=== PATIENT | female | born 1990 | race Caucasian/White ===

== ENCOUNTER 2018-12-21 02:31 | Emergency (ER) | payer MEDICAID ==
[~2018-12-21] VITALS: Ht 154.9 cm; Wt 43.4 kg
[~2018-12-21 02:31] MED LIST: NO HOME MEDS
[2018-12-21 03:00] LABS: URINE HCG NEGATIVE (NEG)
[2018-12-21 03:00] LABS: BASOPHILS % (AUTO) 0.3 % (0-1); EOSINOPHILS # (AUTO) 0.1 X10'3 (0-0.9); EOSINOPHILS % (AUTO) 0.5 % (0-6); HEMATOCRIT 43.7 % (35.0-45.0); HEMOGLOBIN 14.9 g/dl (12.0-16.0); LYMPHOCYTES # (AUTO) 3.6 X10'3 (1.1-4.8); LYMPHOCYTES % (AUTO) 26.7 % (21-51); MEAN CORPUSCULAR HEMOGLOBIN 31.3 PG (27.0-31.0); MEAN CORPUSCULAR HGB CONC 34.1 g/dL (33.0-36.5); MEAN CORPUSCULAR VOLUME 91.6 FL (78-98); MEAN PLATELET VOLUME 8.6 FL (7.4-10.4); MONOCYTES # (AUTO) 0.9 X10'3 (0-0.9); MONOCYTES % (AUTO) 6.6 % (2-12); NEUTROPHILS # (AUTO) 8.9 X10'3 (1.8-7.7); NEUTROPHILS % (AUTO) 65.9 % (42-75); PLATELET COUNT 266 X10'3 (140-440); RED BLOOD COUNT 4.77 X10'6 (4.20-5.60); WHITE BLOOD COUNT 13.5 X10'3 (4.5-11.0)
[2018-12-21] MEDS ORDERED: ketorolac tromethamine 15mg/ml inj. IV ONE (03:10)
[2018-12-21] MEDS ORDERED: normal saline 1000ML IV soln IVB ONE (03:10)
[2018-12-21 03:12] LABS: ALANINE AMINOTRANSFERASE 25 U/L (12-78); ALBUMIN 4.4 G/DL (3.4-5.0); ALBUMIN/GLOBULIN RATIO 1.2 (1.1-1.5); ALKALINE PHOSPHATASE 62 IU/L (46-116); ANION GAP 13 (8-16); ASPARTATE AMINO TRANSFERASE 12 U/L (10-37); BILIRUBIN,TOTAL 0.5 MG/DL (0.1-1.0); BLOOD UREA NITROGEN 19 MG/DL (7-18); BUN/CREATININE RATIO 22.9 (6.6-38.0); CALCIUM 9.1 MG/DL (8.5-10.1); CHLORIDE 103 MMOL/L (99-107); CREATININE 0.83 MG/DL (0.40-0.90); GLUCOSE 117 MG/DL (70-104); LIPASE 207 U/L (73-393); POTASSIUM 3.7 MMOL/L (3.5-5.1); SODIUM 136 MMOL/L (135-145); TOTAL CARBON DIOXIDE 20.1 MMOL/L (24-32); TOTAL PROTEIN 8.2 G/DL (6.4-8.2); eGFR 82 ML/MIN
[2018-12-21 03:16] LABS: CLARITY,URINE CLEAR (Clear); COLOR,URINE STRAW (Yellow); GLUCOSE, URINE NEGATIVE (Neg); KETONES,URINE NEGATIVE (Neg); LEUKOCYTE ESTERASE ,URINE NEGATIVE (Neg); NITRITES, URINE NEGATIVE (Neg); OCCULT BLOOD,URINE SMALL (Neg); PROTEIN,URINE NEGATIVE (Neg); UROBILINOGEN,URINE 0.2 E.U/dL (0.2-1.0)
[2018-12-21 03:26] LABS: UA COLLECTION TYPE VOIDED
--- NOTE | 2018-12-21 03:45 | NUR ---
Romina sandy in ED - 12/21/18 at 0504 by LETHA PT UP OUT OF BED TO BEDSIDE COMODE WAS ABLE TO TRANSFR FROM BED TO COMODE WITH EASE
--- NOTE | 2018-12-21 04:10 | NUR ---
Romina sandy in [facility] - 12/21/18 at 0504 by LETHA PT MOVED TO ROOM 4
[2018-12-21 04:14] LABS: BACTERIA,URINE NONE SEEN /HPF (Neg); MUCUS STRANDS NONE SEEN /LPF (Neg); RBC,URINE 0-2 /HPF (0-2); SQUAMOUS EPITHELIAL CELL,UR FEW /LPF (FEW); WBC,URINE 0-4 /HPF (0-4)
--- NOTE | 2018-12-21 05:01 | NUR ---
Romina sandy in ED - 12/21/18 at 0504 by LSTOCKTON PT SLEEPING COMFORTBALE. RESP THERPAY TO SEE PT
[2018-12-21 05:37] VITALS: BP 131/61
[2018-12-21] MEDS ORDERED: HYDR-3965 PO (05:43)
[2018-12-21] MEDS ORDERED: HYDROcodone/acetaminophen 10/325mg tab PO ONE (05:45)
== END 2018-12-21 06:47 | disposition home or self-care (01) ==
LOC: ER 02:31
DX: R10.2 Pelvic and perineal pain (principal); M54.5 Low back pain; R30.0 Dysuria; J45.909 Unspecified asthma, uncomplicated; Z88.1 Allergy status to other antibiotic agents
CPT/HCPCS: 36415; 76856; 80053; 81001; 81025; 83690; 85025; 85610; 87210; 96374; 99284; J1885; J7030

== ENCOUNTER 2018-12-23 16:31 | Emergency (ER) | payer MEDICAID ==
[~2018-12-23] VITALS: Ht 154.9 cm; Wt 52.0 kg
[~2018-12-23 16:31] MED LIST changes: +HYDR-3965 PO
--- NOTE | 2018-12-23 17:15 | NUR ---
Father called and patient gave permission for RN to speak with Father. 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 Patient was diagnosed with Bipolar d/o several months ago. Patient is on a lot of medication per father and patient stopped taking the Tegretol and the Zyprexa because she felt too drugged.
[2018-12-23] MEDS ORDERED: OLAN5TAB5 PO ×2 (17:22)
[2018-12-23] MEDS ORDERED: FAMO40TA58 PO (17:22)
[2018-12-23] MEDS ORDERED: ONDA4TAB12 PO (17:22)
[2018-12-23] MEDS ORDERED: CARB200T PO (17:22)
[2018-12-23] MEDS ORDERED: LORA-512 PO (17:22)
[2018-12-23] MEDS ORDERED: LURA40TA3 PO (17:22)
--- NOTE | 2018-12-23 17:31 | NUR ---
Patient just informed RN that she has 8/10 CP X 2 days from a Toradol injection she received in this E.D. 2 days ago. RN ordered EKG.
[2018-12-23] MEDS ORDERED: ondansetron 4mg rapidly disintigrating tab PO PRN (18:05)
[2018-12-23 18:47] LABS: BASOPHILS % (AUTO) 0.3 % (0-1); EOSINOPHILS # (AUTO) 0.1 X10'3 (0-0.9); EOSINOPHILS % (AUTO) 0.9 % (0-6); HEMATOCRIT 42.9 % (35.0-45.0); HEMOGLOBIN 14.7 g/dl (12.0-16.0); LYMPHOCYTES # (AUTO) 2.6 X10'3 (1.1-4.8); MEAN CORPUSCULAR HEMOGLOBIN 31.8 PG (27.0-31.0); MEAN CORPUSCULAR HGB CONC 34.3 g/dL (33.0-36.5); MEAN CORPUSCULAR VOLUME 92.6 FL (78-98); MEAN PLATELET VOLUME 8.4 FL (7.4-10.4); MONOCYTES # (AUTO) 0.6 X10'3 (0-0.9); MONOCYTES % (AUTO) 6.9 % (2-12); NEUTROPHILS % (AUTO) 60.9 % (42-75); PLATELET COUNT 237 X10'3 (140-440); RED BLOOD COUNT 4.63 X10'6 (4.20-5.60); RED CELL DISTRIBUTION WIDTH 12.9 % (11.5-14.5); WHITE BLOOD COUNT 8.2 X10'3 (4.5-11.0)
[2018-12-23 18:59] LABS: ALANINE AMINOTRANSFERASE 23 U/L (12-78); ALBUMIN 4.2 G/DL (3.4-5.0); ALBUMIN/GLOBULIN RATIO 1.1 (1.1-1.5); ALKALINE PHOSPHATASE 60 IU/L (46-116); ANION GAP 10 (8-16); ASPARTATE AMINO TRANSFERASE 10 U/L (10-37); BILIRUBIN,TOTAL 0.6 MG/DL (0.1-1.0); BLOOD UREA NITROGEN 15 MG/DL (7-18); BUN/CREATININE RATIO 17.4 (6.6-38.0); CALCIUM 9.2 MG/DL (8.5-10.1); CHLORIDE 105 MMOL/L (99-107); CREATININE 0.86 MG/DL (0.40-0.90); GLUCOSE 98 MG/DL (70-104); POTASSIUM 3.8 MMOL/L (3.5-5.1); SODIUM 141 MMOL/L (135-145); TOTAL CARBON DIOXIDE 26.3 MMOL/L (24-32); eGFR 79 ML/MIN
[2018-12-23 19:01] LABS: CLARITY,URINE CLEAR (Clear); COLOR,URINE YELLOW (Yellow); GLUCOSE, URINE NEGATIVE (Neg); KETONES,URINE NEGATIVE (Neg); LEUKOCYTE ESTERASE ,URINE SMALL (Neg); NITRITES, URINE NEGATIVE (Neg); OCCULT BLOOD,URINE LARGE (Neg); PROTEIN,URINE NEGATIVE (Neg); UROBILINOGEN,URINE 0.2 E.U/dL (0.2-1.0)
[2018-12-23 19:03] LABS: ETHANOL < 0.010 GM/DL (0.0-0.010); TROPONIN I < 0.04 NG/ML (0.0-0.05)
[2018-12-23 19:05] LABS: URINE HCG NEGATIVE (NEG)
[2018-12-23 19:05] LABS: ACETAMINOPHEN < 2.0 UG/ML (10-30)
[2018-12-23 19:07] LABS: UA COLLECTION TYPE NON-SPECIFIED
[2018-12-23 19:09] LABS: BACTERIA,URINE 1+ /HPF (Neg); RBC,URINE 0-2 /HPF (0-2); SQUAMOUS EPITHELIAL CELL,UR MODERATE /LPF (FEW); WBC,URINE 0-4 /HPF (0-4)
[2018-12-23 19:13] LABS: URINE AMPHETAMINE SCREEN NEGATIVE (Neg); URINE BARBITUATE SCREEN NEGATIVE (Neg); URINE BENZODIAZEPINES SCREEN NEGATIVE (Neg); URINE CANNABINOID SCREEN NEGATIVE (Neg); URINE COCAINE SCREEN NEGATIVE (Neg); URINE METHADONE SCREEN NEGATIVE (Neg); URINE OPIATE SCREEN NEGATIVE (Neg); URINE PHENCYCLIDINE SCREEN NEGATIVE (Neg)
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
--- NOTE | 2018-12-23 19:29 | NUR ---
Medications from home sent back home with the friend.
--- NOTE | 2018-12-23 19:29 | NUR ---
Patient's boyfriend: Eliud; [phone]. THe patient is wanting to share treatment information with him.
[2018-12-23] MEDS ORDERED: non-formulary drug (Carbamazepine (Tegretol) 1 TAB) PO SCH (20:00)
--- NOTE | 2018-12-23 20:10 | NUR ---
Pt packet faxed to [facility]
[2018-12-23] MEDS ORDERED: non-formulary drug (Famotidine 1 TAB) PO SCH (21:00)
[2018-12-23] MEDS ORDERED: non-formulary drug (Lurasidone HCl (Latuda) 1 TAB) PO SCH (21:00)
[2018-12-23] MEDS: lurasidone 20mg tablet PO SCH (21:16)
[2018-12-23] MEDS: OLANZapine 5mg rapidly disint. tablet PO SCH (21:16)
[2018-12-23] MEDS: carBAMazepine 100mg chewable tablet PO SCH (21:16)
[2018-12-23] MEDS: famotidine 20mg tablet PO SCH (21:17)
--- NOTE | 2018-12-23 21:28 | NUR ---
The patient is resting on her bed. She was medication compliant. She is worried that she won't wake up and reassurances given.
--- NOTE | 2018-12-23 22:28 | NUR ---
The patient appears to be asleep
--- NOTE | 2018-12-24 00:42 | NUR ---
The patient appears to be sleeping
--- NOTE | 2018-12-24 01:49 | NUR ---
The patient appears to be asleep
--- NOTE | 2018-12-24 04:07 | NUR ---
The patient appears to be asleep
--- NOTE | 2018-12-24 06:39 | NUR ---
Patient sleeping on left side. No distress observed. Continue to monitor.
[2018-12-24] MEDS ORDERED: non-formulary drug (Loratadine* (Alavert*) 1 TAB) PO SCH (08:00)
[2018-12-24] MEDS: OLANZapine 5mg rapidly disint. tablet PO SCH ×2 (08:00→20:45)
--- NOTE | 2018-12-24 08:20 | NUR ---
Patient sitting up and eating breakfast. No distress observed. Continue to monitor.
[2018-12-24] MEDS: carBAMazepine 100mg chewable tablet PO SCH ×2 (08:29→20:46)
[2018-12-24] MEDS: loratadine 10mg tablet PO SCH (08:29)
--- NOTE | 2018-12-24 10:50 | NUR ---
Patient talking to nurse telling her she doesn't feel well. RN asked patient what is going on. Patient states she is on her period for the second time in 2 weeks. Patient denies pain, just not feeling well. Continue to monitor.
[2018-12-24] MEDS ORDERED: magnesium hydroxide 30ml (MOM) UD suspension PO ONE (12:40)
--- NOTE | 2018-12-24 12:55 | NUR ---
Patient c/o constipation. RN rec'd order for M.O.M. Continue to monitor.
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
--- NOTE | 2018-12-24 14:26 | NUR ---
Patient sleeping on left side. No distress observed. Eve walked into room to speak to patient. Continue to monitor.
--- NOTE | 2018-12-24 16:45 | NUR ---
Patient continues to sleep. RN awoke patient and patient wants to call her friend Maximo. Continue to monitor.
--- NOTE | 2018-12-24 19:18 | NUR ---
Pt's socks placed in ambulance bay lockers. Pt's other belongings given to family friend.
[2018-12-24] MEDS: famotidine 20mg tablet PO SCH (20:45)
[2018-12-24] MEDS: lurasidone 20mg tablet PO SCH (20:45)
--- NOTE | 2018-12-25 06:45 | NUR ---
pt lying in bed quietly, appears to be sleeping.
--- NOTE | 2018-12-25 07:55 | NUR ---
pt sleeping in bed
[2018-12-25] MEDS: loratadine 10mg tablet PO SCH (08:38)
[2018-12-25] MEDS: carBAMazepine 100mg chewable tablet PO SCH ×2 (08:38→20:33)
[2018-12-25] MEDS: OLANZapine 5mg rapidly disint. tablet PO SCH ×2 (08:39→20:34)
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
--- NOTE | 2018-12-25 13:29 | NUR ---
PT SITTING UP IN BED EATING LUNCH AND TALKING ON THE PHONE TO HER FATHER
[2018-12-25 17:23] VITALS: BP 109/69
[2018-12-25] MEDS ORDERED: LORazepam 1 MG tablet PO ONE (19:45)
[2018-12-25] MEDS: famotidine 20mg tablet PO SCH (20:33)
[2018-12-25] MEDS: lurasidone 20mg tablet PO SCH (20:33)
== END 2018-12-26 00:22 ==
LOC: ER 16:32
DX: R45.851 Suicidal ideations (principal); F22 Delusional disorders; F31.9 Bipolar disorder, unspecified; J45.909 Unspecified asthma, uncomplicated; Z88.0 Allergy status to penicillin; Z79.899 Other long term (current) drug therapy
CPT/HCPCS: 36415; 80053; 80305; 80320; 80329; 81001; 81025; 84484; 85025; 99285

== ENCOUNTER 2018-12-25 23:00 | Inpatient (IN) | payer MEDICAID ==
[~2018-12-25] VITALS: Ht 154.9 cm; Wt 78.9 kg
[~2018-12-25 23:00] MED LIST changes: +CARB200T PO; +FAMO40TA58 PO; -HYDR-3965 PO; +LORA-512 PO; +LURA40TA3 PO; -NO HOME MEDS; +OLAN5TAB5 PO; +ONDA4TAB12 PO
[2018-12-26 01:13] VITALS: BP 108/85
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
[2018-12-26] MEDS ORDERED: mag hydrox/Alum hydrox/simeth 30ml oral suspension PO PRN (02:10)
[2018-12-26] MEDS ORDERED: acetaminophen 325mg tablet PO PRN ×2 (02:10)
[2018-12-26] MEDS ORDERED: loperamide 2mg capsule PO PRN (02:10)
[2018-12-26] MEDS ORDERED: magnesium hydroxide 30ml (MOM) UD suspension PO PRN (02:10)
[2018-12-26] MEDS ORDERED: ondansetron 4mg rapidly disintigrating tab PO PRN (02:35)
[2018-12-26] MEDS: carBAMazepine Ext. Release 200 MG TAB.ER.12H PO SCH ×2 (07:44→20:39)
[2018-12-26] MEDS: loratadine 10mg tablet PO SCH (07:44)
[2018-12-26] MEDS: OLANZapine 5mg rapidly disint. tablet PO SCH ×2 (07:44→07:48)
[2018-12-26] MEDS: hydrOXYzine 25 MG tablet PO PRN (07:55)
[2018-12-26 07:57] VITALS: BP 108/65
[2018-12-26 08:23] LABS: CHOL/HDL RATIO 3.2 (0.00-4.99); CHOLESTEROL 126 MG/DL (0-200); HDL CHOLESTEROL 40 MG/DL (35-60); LDL CHOLESTEROL 75 MG/DL (50-100); TRIGLYCERIDES 84 MG/DL (20-135)
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
[2018-12-26] MEDS: pantoprazole 40mg Tablet.DR PO SCH (18:16)
[2018-12-26 19:40] VITALS: BP 100/71
[2018-12-26] MEDS ORDERED: lurasidone 20mg tablet PO SCH (21:00)
[2018-12-26] MEDS ORDERED: famotidine 20mg tablet PO SCH (21:00)
[2018-12-26] MEDS ORDERED: OLANZapine 5mg rapidly disint. tablet PO SCH (21:00)
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
[2018-12-27] MEDS: loratadine 10mg tablet PO SCH (07:24)
[2018-12-27] MEDS: pantoprazole 40mg Tablet.DR PO SCH (07:24)
[2018-12-27 08:00] VITALS: BP 120/75
[2018-12-27] MEDS: carBAMazepine Ext. Release 200 MG TAB.ER.12H PO SCH ×2 (08:13→21:19)
[2018-12-27] MEDS: hydrOXYzine 25 MG tablet PO PRN (13:44)
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
[2018-12-27 20:00] VITALS: BP 112/70
[2018-12-27] MEDS ORDERED: traZODone 50mg tablet PO SCH (21:00)
[2018-12-27] MEDS: LORazepam 1 MG tablet PO PRN (21:13)
[2018-12-27] MEDS: lurasidone 20mg tablet PO SCH (21:17)
[2018-12-27] MEDS: amitriptyline 25mg tablet PO SCH (21:19)
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
[2018-12-28 07:00] VITALS: BP 97/58
[2018-12-28] MEDS: carBAMazepine Ext. Release 200 MG TAB.ER.12H PO SCH ×2 (07:33→20:08)
[2018-12-28] MEDS: loratadine 10mg tablet PO SCH (07:33)
[2018-12-28] MEDS: pantoprazole 40mg Tablet.DR PO SCH (07:33)
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
[2018-12-28 20:00] VITALS: BP 100/74
[2018-12-28] MEDS: lurasidone 20mg tablet PO SCH (20:08)
[2018-12-28] MEDS: amitriptyline 25mg tablet PO SCH (20:08)
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
[2018-12-28] MEDS: LORazepam 1 MG tablet PO PRN (21:19)
[2018-12-29 08:00] VITALS: BP 103/63
[2018-12-29] MEDS: loratadine 10mg tablet PO SCH (08:32)
[2018-12-29] MEDS: carBAMazepine Ext. Release 200 MG TAB.ER.12H PO SCH ×2 (08:33→20:07)
[2018-12-29] MEDS: pantoprazole 40mg Tablet.DR PO SCH (08:33)
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
--- NOTE | 2018-12-29 17:45 | NUR ---
Pt c/o having some nausea and an upset stomach. PRN Zofran was given.
[2018-12-29] MEDS: lurasidone 20mg tablet PO SCH (20:08)
[2018-12-29] MEDS: amitriptyline 25mg tablet PO SCH (20:08)
[2018-12-29 20:22] VITALS: BP 104/64
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
[2018-12-30] MEDS: carBAMazepine Ext. Release 200 MG TAB.ER.12H PO SCH (08:02)
[2018-12-30] MEDS: pantoprazole 40mg Tablet.DR PO SCH (08:02)
[2018-12-30] MEDS: loratadine 10mg tablet PO SCH (08:02)
[2018-12-30 08:18] VITALS: BP 127/74
[2018-12-30] MEDS ORDERED: CARB200T PO (15:36)
[2018-12-30] MEDS ORDERED: FAMO40TA58 PO (15:36)
[2018-12-30] MEDS ORDERED: ATI1T PO (15:36)
[2018-12-30] MEDS ORDERED: LORA-512 PO (15:36)
[2018-12-30] MEDS ORDERED: OLAN5TAB5 PO (15:36)
[2018-12-30] MEDS ORDERED: ONDA4TAB12 PO (15:36)
[2018-12-30] MEDS ORDERED: MIRT15TA PO (15:36)
--- NOTE | 2018-12-30 17:39 | NUR ---
Nursing Discharge Note: Pt discharged from [facility] at 1725. Pt escorted to [facility] where she was picked up by her father. Pt returning to [facility] to live with boyfreind. Pt's belongings and valuables inventoried and returned to her by Amanda Telles. Pt has been improving since admission and denies SI, HI. She was in no acute physical or emotional distress. Pt received and understood her F/U appts and discharge instructions. Pt did not need nicotine replacement.
== END 2018-12-30 17:20 | disposition short-term general hospital (02) | DRG 751 ==
LOC: ADULT MH 23:00
PROVIDERS: ADMIT Psychiatry & Neurology Psychiatry; ATTEND Psychiatry & Neurology Psychiatry
DX: F33.2 Major depressive disorder, recurrent severe without psychotic features (principal); R45.851 Suicidal ideations; M41.9 Scoliosis, unspecified; K21.9 Gastro-esophageal reflux disease without esophagitis; F41.0 Panic disorder [episodic paroxysmal anxiety]; F43.12 Post-traumatic stress disorder, chronic; R11.2 Nausea with vomiting, unspecified; J45.909 Unspecified asthma, uncomplicated; Z82.49 Family history of ischemic heart disease and other diseases of the circulatory system; Z56.0 Unemployment, unspecified; Z79.899 Other long term (current) drug therapy; Z88.1 Allergy status to other antibiotic agents
CPT/HCPCS: 36415; 80061; 83036; 84443; 87081; Z7610

== ENCOUNTER 2019-01-01 13:49 | Emergency (ER) | payer MEDICAID ==
[~2019-01-01] VITALS: Ht 154.9 cm; Wt 45.5 kg
[~2019-01-01 13:49] MED LIST changes: +ATI1T PO; -LURA40TA3 PO; +MIRT15TA PO
[2019-01-01] MEDS ORDERED: pantoprazole 40mg Tablet.DR PO STA (15:04)
[2019-01-01] MEDS ORDERED: dicyclomine 10 MG capsule PO ONE (15:05)
[2019-01-01] MEDS ORDERED: ondansetron 4mg rapidly disintigrating tab PO ONE (15:05)
[2019-01-01 15:06] LABS: BASOPHILS % (AUTO) 0.3 % (0-1); EOSINOPHILS % (AUTO) 0.3 % (0-6); HEMATOCRIT 41.3 % (35.0-45.0); HEMOGLOBIN 14.3 g/dl (12.0-16.0); LYMPHOCYTES # (AUTO) 1.8 X10'3 (1.1-4.8); LYMPHOCYTES % (AUTO) 27.4 % (21-51); MEAN CORPUSCULAR HEMOGLOBIN 31.7 PG (27.0-31.0); MEAN CORPUSCULAR HGB CONC 34.5 g/dL (33.0-36.5); MEAN CORPUSCULAR VOLUME 91.7 FL (78-98); MEAN PLATELET VOLUME 8.2 FL (7.4-10.4); MONOCYTES # (AUTO) 0.4 X10'3 (0-0.9); MONOCYTES % (AUTO) 5.3 % (2-12); NEUTROPHILS # (AUTO) 4.4 X10'3 (1.8-7.7); NEUTROPHILS % (AUTO) 66.7 % (42-75); PLATELET COUNT 239 X10'3 (140-440); RED BLOOD COUNT 4.51 X10'6 (4.20-5.60); RED CELL DISTRIBUTION WIDTH 12.7 % (11.5-14.5); WHITE BLOOD COUNT 6.6 X10'3 (4.5-11.0)
--- NOTE | 2019-01-01 15:10 | NUR ---
PT'S FATHER SANGITA CELL: [phone], WORK: [phone]
[2019-01-01 15:23] LABS: ALANINE AMINOTRANSFERASE 25 U/L (12-78); ALBUMIN/GLOBULIN RATIO 1.1 (1.1-1.5); ALKALINE PHOSPHATASE 66 IU/L (46-116); ANION GAP 9 (8-16); ASPARTATE AMINO TRANSFERASE 13 U/L (10-37); BILIRUBIN,TOTAL 0.3 MG/DL (0.1-1.0); BLOOD UREA NITROGEN 13 MG/DL (7-18); BUN/CREATININE RATIO 15.3 (6.6-38.0); CHLORIDE 104 MMOL/L (99-107); CREATININE 0.85 MG/DL (0.40-0.90); ETHANOL < 0.010 GM/DL (0.0-0.010); GLUCOSE 137 MG/DL (70-104); POTASSIUM 4.1 MMOL/L (3.5-5.1); SODIUM 141 MMOL/L (135-145); TOTAL CARBON DIOXIDE 28.3 MMOL/L (24-32); TOTAL PROTEIN 7.6 G/DL (6.4-8.2); eGFR 80 ML/MIN
[2019-01-01 16:47] LABS: URINE HCG NEGATIVE (NEG)
[2019-01-01 16:53] LABS: URINE AMPHETAMINE SCREEN NEGATIVE (Neg); URINE BARBITUATE SCREEN NEGATIVE (Neg); URINE BENZODIAZEPINES SCREEN NEGATIVE (Neg); URINE CANNABINOID SCREEN NEGATIVE (Neg); URINE COCAINE SCREEN NEGATIVE (Neg); URINE METHADONE SCREEN NEGATIVE (Neg); URINE OPIATE SCREEN NEGATIVE (Neg); URINE PHENCYCLIDINE SCREEN NEGATIVE (Neg)
--- NOTE | 2019-01-01 16:56 | NUR ---
break note:patient on bed,asleep.
[2019-01-01 17:16] LABS: CLARITY,URINE CLEAR (Clear); COLOR,URINE YELLOW (Yellow); GLUCOSE, URINE NEGATIVE (Neg); KETONES,URINE NEGATIVE (Neg); LEUKOCYTE ESTERASE ,URINE TRACE (Neg); NITRITES, URINE NEGATIVE (Neg); OCCULT BLOOD,URINE TRACE-LYSED (Neg); PH,URINE 7.5 (4.8-8.0); PROTEIN,URINE NEGATIVE (Neg); UROBILINOGEN,URINE 0.2 E.U/dL (0.2-1.0)
[2019-01-01 17:31] LABS: UA COLLECTION TYPE CLN CATCH MIDSTREAM
[2019-01-01 17:32] LABS: SQUAMOUS EPITHELIAL CELL,UR FEW /LPF (FEW)
[2019-01-01 17:33] LABS: BACTERIA,URINE FEW /HPF (Neg); RBC,URINE 0-2 /HPF (0-2); WBC,URINE 0-4 /HPF (0-4)
[2019-01-01] MEDS ORDERED: sulfamethoxazole/trimethoprim DS (800/160mg) tablet PO ONE (17:50)
[2019-01-01] MEDS ORDERED: OLANZapine 2.5MG tablet PO STA (17:56)
--- NOTE | 2019-01-01 18:12 | NUR ---
FAXED PACKET TO [facility].
--- NOTE | 2019-01-01 18:26 | NUR ---
spoke with pt's father Guero on phone. he was thanking us for taking care of her and hoping we find what is wrong.
[2019-01-01] MEDS ORDERED: ibuprofen tablet 400 MG TABLET PO ONE (19:10)
--- NOTE | 2019-01-01 19:30 | NUR ---
PT REQUESTING PAIN MEDS FOR LOWER ABD CRAMPING PAIN. SYDNI BOLAÑOS VERBAL ORDER 400 MG MOTRIN
--- NOTE | 2019-01-01 20:33 | NUR ---
Packet faxed to [facility]. Confirmed receipt of packet with Jeri @ [facility] office.
[2019-01-01] MEDS ORDERED: CARB200T PO (21:18)
[2019-01-01] MEDS ORDERED: OLAN-1 PO (21:18)
[2019-01-01] MEDS ORDERED: MIRT15TA PO (21:18)
[2019-01-01] MEDS ORDERED: LORA-269 PO (21:18)
[2019-01-01] MEDS ORDERED: ONDA4TAB6 PO (21:18)
[2019-01-01] MEDS ORDERED: LORA10TA7 PO (21:18)
[2019-01-01] MEDS ORDERED: FAMO40TA58 PO (21:18)
[2019-01-01] MEDS ORDERED: ondansetron 4mg rapidly disintigrating tab PO SCH (21:29)
[2019-01-01] MEDS ORDERED: LORazepam 1 MG tablet PO PRN (21:30)
--- NOTE | 2019-01-01 21:39 | NUR ---
28 year old female who self presented to the ER for a mental health evaluation with thoughts of suicide. She was discharged from [facility] earlier in the week but after discharge she did not take her medications as prescribed. She presents as very anxious, depressed and with somatic complaints. She stated that she has been staying with her boyfriend but quickly added, "It's not good for me there. He's on the Keto diet...I have to cook for myself" She stated she doesn't want to go back to her home in [place] [address] to her PTSD and anxiety and stated, "It follows me where ever I go" She denies auditory or visual hallucinations. She is endorcing suicidal thoughts and explained, "I'm giving up. I can't do anything. I just want to give up and " She reports a plan to use a knife or overdose on medications.
[2019-01-01] MEDS: famotidine 20mg tablet PO SCH (21:59)
[2019-01-01] MEDS: carBAMazepine 100mg chewable tablet PO SCH (21:59)
[2019-01-01] MEDS: mirtazapine 15mg tablet PO ONE ×2 (22:01→22:03)
[2019-01-01] MEDS ORDERED: ondansetron 4mg rapidly disintigrating tab PO PRN (23:11)
--- NOTE | 2019-01-02 00:24 | NUR ---
The patient currently appears to be sleeping.
--- NOTE | 2019-01-02 04:18 | NUR ---
The patient appears to have been sleeping since taking her HS medications.
--- NOTE | 2019-01-02 07:00 | NUR ---
Patient awake and talking with patient access representative from [facility]. No somatic complaints. No behavioral issues as of this writing.
[2019-01-02] MEDS: sulfamethoxazole/trimethoprim DS (800/160mg) tablet PO SCH ×2 (08:08→20:32)
[2019-01-02] MEDS: carBAMazepine 100mg chewable tablet PO SCH ×2 (08:08→20:32)
[2019-01-02] MEDS: loratadine 10mg tablet PO SCH (08:08)
--- NOTE | 2019-01-02 09:00 | NUR ---
Pt father came briefly to visit and after a brief, appropriate visit, he left and pt went to sleep without complaints.
--- NOTE | 2019-01-02 10:11 | NUR ---
Pt laying on right side with eyes closed, effortless respirations observed.
--- NOTE | 2019-01-02 11:00 | NUR ---
Pt father visited again and they had a good visit. Pt again sleeping without complaints.
--- NOTE | 2019-01-02 13:00 | NUR ---
Pt resting quietly in bed without complaints.
--- NOTE | 2019-01-02 15:00 | NUR ---
Pt continue to lie in bed with eyes closed. Pt resting without complaints or distress noted.
--- NOTE | 2019-01-02 17:00 | NUR ---
Pt resting quietly in bed without complaints.
--- NOTE | 2019-01-02 18:30 | NUR ---
Assumed care of patient that is relaxing on her bed in no apparent distress.
--- NOTE | 2019-01-02 20:30 | NUR ---
The patient is sleeping on her left side. Respirations are even and unlabored.
[2019-01-02] MEDS: famotidine 20mg tablet PO SCH (20:32)
[2019-01-02] MEDS ORDERED: OLANZapine 5mg rapidly disint. tablet PO SCH (21:00)
[2019-01-02] MEDS ORDERED: mirtazapine 15mg tablet PO SCH (21:00)
--- NOTE | 2019-01-02 23:28 | NUR ---
Patient is sleeping on her back with covers pulled up to her face. Respirations are effortless. No s/s of distress.
--- NOTE | 2019-01-03 01:33 | NUR ---
Patient is sleeping on her right side with covers pulled up to her face. Respirations are effortless. No s/s of distress.
--- NOTE | 2019-01-03 02:17 | NUR ---
The patient is sleeping on her back. Resp are even and unlabored. No s/s of distress noted.
--- NOTE | 2019-01-03 03:59 | NUR ---
The patient is asleep on her right side. Respirations are even and unlabored. No s/s of distress noted.
--- NOTE | 2019-01-03 06:30 | NUR ---
Asleep upon change of shift observation. Color and breathing WNL. Undisturbed at this time.
[2019-01-03] MEDS: loratadine 10mg tablet PO SCH (08:21)
[2019-01-03] MEDS: sulfamethoxazole/trimethoprim DS (800/160mg) tablet PO SCH (08:21)
[2019-01-03] MEDS: carBAMazepine 100mg chewable tablet PO SCH (08:26)
--- NOTE | 2019-01-03 08:30 | NUR ---
Awakenend for breakfast. Patient stated she was nauseous and asked for Zofran. All morning medications administered as ordered. Picked at her breakfast. Stated "I'm just not hungry right now."
--- NOTE | 2019-01-03 09:15 | NUR ---
Asked what brought her to the hospital. Patient stated "The voices came back. It just wasn't working for me at home." Then asked for a warm blanket and huddled under her covers.
--- NOTE | 2019-01-03 09:45 | NUR ---
Father, who is on the road as a regulatory affairs analyst, called patient and asked if she could sign paperwork with a realtor to put her trailer up for sale. Father, with patient's permission, informed patient was unable to sign any legal paperwork while on a 72 hour legal hold. Father accepted this inofrmation without event. Patient then spoke with father afterwards.
--- NOTE | 2019-01-03 13:00 | NUR ---
Napped until lunchtime. Awakened when presented with lunch tray. Sat up and picked at her food once again. States "None of this tastes good to me." Returned to sleep immediately afterwards.
[2019-01-03] MEDS ORDERED: BACDS PO (14:13)
--- NOTE | 2019-01-03 15:00 | NUR ---
Patient discharged from ER Bed 21 and admitted to [place] for [facility] ([facility]) for care. Left the unit via wheelchair with all her personal possessions, accompanied by Security staff and staff member Roya from [facility]. Patient was discharged from [facility] last week but felt her discharge there was "too soon because I can't make the voices stop in my head."
[2019-01-03 17:09] VITALS: BP 124/86
== END 2019-01-03 15:00 ==
LOC: ER 13:50
DX: R45.851 Suicidal ideations (principal); F32.9 Major depressive disorder, single episode, unspecified; N39.0 Urinary tract infection, site not specified; R11.10 Vomiting, unspecified; J45.909 Unspecified asthma, uncomplicated; Z88.1 Allergy status to other antibiotic agents; Z88.8 Allergy status to other drugs, medicaments and biological substances
CPT/HCPCS: 36415; 80053; 80305; 80320; 81001; 81025; 85025; 99285

== ENCOUNTER 2019-01-03 13:46 | Inpatient (IN) | payer MEDICAID ==
[~2019-01-03] VITALS: Ht 154.9 cm; Wt 51.1 kg
[~2019-01-03 13:46] MED LIST changes: -ATI1T PO; +LORA-269 PO; -LORA-512 PO; +LORA10TA7 PO; +OLAN-1 PO; -OLAN5TAB5 PO; -ONDA4TAB12 PO; +ONDA4TAB6 PO
[2019-01-03] MEDS ORDERED: acetaminophen 325mg tablet PO PRN (14:10)
[2019-01-03] MEDS ORDERED: loperamide 2mg capsule PO PRN (14:10)
[2019-01-03] MEDS ORDERED: magnesium hydroxide 30ml (MOM) UD suspension PO PRN (14:10)
[2019-01-03] MEDS ORDERED: BACDS PO (14:13)
[2019-01-03] MEDS ORDERED: ondansetron 4mg rapidly disintigrating tab PO PRN (14:45)
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
[2019-01-03 16:59] VITALS: BP 103/74
--- NOTE | 2019-01-03 19:42 | NUR ---
PT REQUEST FOR [facility]: SW met w/ pt. Pt completed KARY and DC planning form. Pt reports she would like a referral to [facility], if appropriate. Pt states she has not gotten her medi-uc [facility] switched to [facility] yet, therefore a discussion with Michael and ACCESS needs to occur to learn viability of potential plan. Eloina Lacy, Synthetic Cloth Binding Cutter GENERAL REPAIR MECHANIC [id number] Supervised by Tommie Hallman, [id number]
[2019-01-03] MEDS: OLANZapine 5mg rapidly disint. tablet PO SCH (20:15)
[2019-01-03] MEDS: sulfamethoxazole/trimethoprim DS (800/160mg) tablet PO SCH (20:16)
[2019-01-03 20:17] VITALS: BP 122/85
[2019-01-03] MEDS: carBAMazepine 100mg chewable tablet PO SCH (20:17)
[2019-01-03] MEDS: famotidine 20mg tablet PO SCH (20:17)
[2019-01-03] MEDS: hydrOXYzine 25 MG tablet PO PRN (20:18)
[2019-01-03] MEDS ORDERED: mirtazapine 15mg tablet PO SCH (21:00)
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
[2019-01-04 07:00] VITALS: BP 105/60
[2019-01-04] MEDS: sulfamethoxazole/trimethoprim DS (800/160mg) tablet PO SCH ×2 (07:57→20:14)
[2019-01-04] MEDS: carBAMazepine 100mg chewable tablet PO SCH ×2 (07:57→20:14)
[2019-01-04] MEDS: loratadine 10mg tablet PO SCH (07:58)
[2019-01-04 08:11] LABS: CHOL/HDL RATIO 3.2 (0.00-4.99); CHOLESTEROL 140 MG/DL (0-200); HDL CHOLESTEROL 44 MG/DL (35-60); LDL CHOLESTEROL 87 MG/DL (50-100); TRIGLYCERIDES 66 MG/DL (20-135)
[2019-01-04 08:12] LABS: CARBAMAZEPINE (TEGRETOL) 9.3 UG/ML (4.0-12.0)
[2019-01-04] MEDS: mag hydrox/Alum hydrox/simeth 30ml oral suspension PO PRN (11:02)
[2019-01-04] MEDS: hydrOXYzine 25 MG tablet PO PRN (15:40)
[2019-01-04] MEDS: acetaminophen 325mg tablet PO PRN (15:41)
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
[2019-01-04 20:00] VITALS: BP 107/75
[2019-01-04] MEDS ORDERED: cloNIDine 0.1 mg tablet PO ONE (20:00)
[2019-01-04] MEDS: lactobacillus rhamnosus 10,000 MMU CELLS/CAPSULE PO SCH (20:13)
[2019-01-04] MEDS: famotidine 20mg tablet PO SCH (20:14)
[2019-01-04] MEDS: OLANZapine 5mg rapidly disint. tablet PO SCH (20:14)
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
[2019-01-05 08:00] VITALS: BP 103/56
[2019-01-05] MEDS: loratadine 10mg tablet PO SCH (08:44)
[2019-01-05] MEDS: sulfamethoxazole/trimethoprim DS (800/160mg) tablet PO SCH ×2 (08:44→20:44)
[2019-01-05] MEDS: carBAMazepine 100mg chewable tablet PO SCH ×2 (08:45→20:45)
[2019-01-05] MEDS: lactobacillus rhamnosus 10,000 MMU CELLS/CAPSULE PO SCH ×2 (08:45→20:44)
--- NOTE | 2019-01-05 12:27 | NUR ---
DISCHARGE PLANNING Spoke with patient's father, Guero, who can be reached at . He states he is willing to assist with discharge planning and aftercare when Sharona is stable. She has a mobile home that is being sold in [place] and the realtor ([employer] [phone]) and [email or web address] ([phone]) have forms that need to be signed authorizing the sale. He also reports she has a storage unit and 5th wheel located in [place]. He is agreeable to help her get established in [place], where she wants to reside, once he returns from a engineering technical analyst [place]ina assignment on 01/20/19. Will communicate with Environmental Services Supervisor team and patient.
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
[2019-01-05 20:00] VITALS: BP 108/62
[2019-01-05] MEDS: famotidine 20mg tablet PO SCH (20:45)
[2019-01-05] MEDS: OLANZapine 5mg rapidly disint. tablet PO SCH (20:55)
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
[2019-01-06 08:00] VITALS: BP 113/62
[2019-01-06] MEDS: sulfamethoxazole/trimethoprim DS (800/160mg) tablet PO SCH ×2 (08:42→20:12)
[2019-01-06] MEDS: lactobacillus rhamnosus 10,000 MMU CELLS/CAPSULE PO SCH ×2 (08:42→20:12)
[2019-01-06] MEDS: loratadine 10mg tablet PO SCH (08:42)
[2019-01-06] MEDS: carBAMazepine 100mg chewable tablet PO SCH ×2 (08:43→20:13)
[2019-01-06] MEDS: hydrOXYzine 25 MG tablet PO PRN ×2 (08:47→19:45)
--- NOTE | 2019-01-06 16:51 | NUR ---
Px's Medi-Payam in process of being transferred from [facility] to [facility]. As of 4:56 pm 01/06, follow up needed with [facility] at [phone]. People contacted are Leo and Bonita. [facility] case number is [id number]. Steps taken: Per Dany and Px, Px needs Medi-Payam transferred from [facility]. Px called [facility] with number provided by Dany Zapata: [phone]. Px reported [facility] said Px needs an address. Px does not have an address. Janet EVERETT Director Family called [facility] [employer] to clarify what they defined as an address. Determined Px has a valid ID and can receive mail at [facility] general delivery. Px was asked whether she would like to call [facility] Again or sign an KARY. Px signed KARY. Janet MATAW Director Family faxed signed KARY, with cover sheet prepared by Dany, to [facility] at [phone]. Fax confirmation received.
--- NOTE | 2019-01-06 18:23 | NUR ---
Nursing Progress Note: Legal hold: 5150 Client on involuntary status for DTS Report received from nurse with use of SBAR: Kindra RN Why are they here: Pt self presented to the ER after recently being discharged from [facility] 4 days ago. She reported that she had stopped taking her medications due to side effects (making her heart rate too fast). Pt reports suicidal ideation constantly all day and states, "I feel like I have no purpose". She had a recent suicide attempt by laying in middle of road and wanting for a car to hit her. Pt has history Bipolar, depression, anxiety, and reports she became suicidal again when thinking about the recent of her step-dad from an [place]. Assessment What has happened this shift: Patient is observed sleeping at change of shift. She is pleasant and takes her medications without any issue. She isolates during the day but is apprachable and conversational. She reports anxiety during the day and requests Atarax, denies wanting Ativan. She attends meals and then returns to her room. S/I, H/I: She continues to endorse S/I with a plan to run in front of a car. A/VH: Denies Sleep: Appears to be resting comfortably throughout the shift 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: no Were meds taken: Yes Any med S/E: none reported Mental Status Exam Appearance: disheveled Eye contact: direct Behavior: Cooperative, anxious, fatigued, and withdrawn Speech: Soft tone, normal rate and rhythm Mood: Depressed and withdrawn Affect: Flat Thought process: WNL Thought Content: no deluisonal thought content present Cognition: A&O X4 Insight: Poor Judgment: Poor Interventions PRN's used: Atarax Therapeutic interventions: 1:1 therapeutic assessment, maintained safe therapeutic milieu, provided active listening with positive feedback, provided medication education as needed, monitored behaviors and need for intervention, Q 15 min safety checks. Restraints/seclusion/emergency medication: N/A Justification of Continued Inpatient Treatment: Continued therapeutic support and medication management needed to provide stabilization, prevent decompensation, decreasing risk to patient and readmittance.
[2019-01-06 19:38] VITALS: BP 108/74
[2019-01-06] MEDS: OLANZapine 5mg rapidly disint. tablet PO SCH (20:12)
[2019-01-06] MEDS: famotidine 20mg tablet PO SCH (20:12)
[2019-01-06] MEDS: LORazepam 1 MG tablet PO PRN (20:46)
--- NOTE | 2019-01-06 23:54 | NUR ---
Nursing Progress Note: Legal hold: Voluntary Client on voluntary status for DTS Report received from nurse with use of SBAR: LORETTA Mesa Why are they here: Pt self presented to the ER after recently being discharged from [facility] 4 days ago. She reported that she had stopped taking her medications due to side effects (making her heart rate too fast). Pt reports suicidal ideation constantly all day and states, "I feel like I have no purpose". She had a recent suicide attempt by laying in middle of road and wanting for a car to hit her. Pt has history Bipolar, depression, anxiety, and reports she became suicidal again when thinking about the recent of her step-dad from an [place]. Assessment What has happened this shift: Pt was laying in bed at shift change with no acute distress noted. This RN introduced self and established rapport, pt presents as depressed and isolative. Pt c/o of left lower rib pain, painful upon palpation. Pt states it hurts when she breaths and it is hard to catch her breath. Pt's HOB was raised, HR 88, RR 16, SpO2 98%, lungs clear upon auscultation. Pt requests an Ativan, when asked what triggered her anxiety pt states "thinking about my step dad and the day I found him ." Pt was administered Atarax, then Ativan with effect. Pt denies having a suicide plan, but reports "I just don't want to be here." Pt's recent Carbamazepine level is 9.2 drawn on 01/04. Pt is cooperative and remains in her room all of shift. Pt is observed talking on phone several times throughout shift. Pt medication compliant. S/I, H/I: No plan, "I just don't want to be here." A/VH: Pt denies Sleep: See sleep assessment notation. 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, no group Were meds taken: Medication compliant Any med S/E: None reported or observed Mental Status Exam Appearance: Disheveled, messy hair, dressed in green scrubs Eye contact: Fair Behavior: Cooperative, anxious, fatigued, and isolative Speech: Soft, articulate, normal rate and rhythm Mood: Depressed and withdrawn Affect: Flat Thought process: Linear Thought Content: Preoccupation with somatic s/s Cognition: A&O X4 Insight: Poor Judgment: Poor Interventions PRN's used: None Therapeutic interventions: Introduced self and established rapport, ensured contract for safety, maintained a safe and supportive environment, monitored behavior and need for intervention, encouraged performance of ADLs and nutrition intake, and maintained Q 15 min safety checks. Restraints/seclusion/emergency medication: N/A Justification of Continued Inpatient Treatment: Pt. requires interruption of current crisis, medication adjustments, and a safe and supportive environment.
[2019-01-07 08:00] VITALS: BP 102/55
[2019-01-07] MEDS: loratadine 10mg tablet PO SCH (08:44)
[2019-01-07] MEDS: carBAMazepine 100mg chewable tablet PO SCH ×2 (08:45→20:46)
[2019-01-07] MEDS: sulfamethoxazole/trimethoprim DS (800/160mg) tablet PO SCH ×2 (08:45→20:45)
[2019-01-07] MEDS: lactobacillus rhamnosus 10,000 MMU CELLS/CAPSULE PO SCH ×2 (08:45→20:46)
[2019-01-07] MEDS: hydrOXYzine 25 MG tablet PO PRN (09:45)
--- NOTE | 2019-01-07 11:13 | NUR ---
DISCHARGE PLANNING PT HAS [place] [employer] AND WILL NOT BE ABLE TO GET [facility] UNTIL FEBRUARY 11, 2019 Addendum: 01/07/19 at 1116 by Dany Zapata PCT [facility] CAN NOT EXCEPT OUT OF COUNTY INS, WILL LOOK FOR OTHER AVENUES FOR [place].
--- NOTE | 2019-01-07 12:51 | NUR ---
Competitive Athlete 1:1 The undersigned clinician met individually with pt. per request from treatment team. Intervention= Attuned empathic listening with bilateral sound. Pt. reported a reduction in emotional distress from a 10 to a 2. Pt. reports having distress related to past traumatic events that are triggered in her home town and the home she has there. Pt. reports wanting to leave that town and sell that home and find a home she can live in away from those reminders. Plan= continue to support pt to reduce anxiety and collaborate with treatment team. Rosa M Shah LMFT
--- NOTE | 2019-01-07 18:17 | NUR ---
Nursing Progress Note: Legal hold: 5150 Client on involuntary status for DTS Report received from nurse with use of SBAR: Demi BURGOS Why are they here: Pt self presented to the ER after recently being discharged from [facility] 4 days ago. She reported that she had stopped taking her medications due to side effects (making her heart rate too fast). Pt reports suicidal ideation constantly all day and states, "I feel like I have no purpose". She had a recent suicide attempt by laying in middle of road and wanting for a car to hit her. Pt has history Bipolar, depression, anxiety, and reports she became suicidal again when thinking about the recent of her step-dad from an [place]. Assessment What has happened this shift: Patient is observed sleeping at change of shift. She is awoken to join others in the group room for breakfast. After having some of her meal, her medications are offered. She takes them all without any issue. Patient states that she will have visitors today after breakfast. Patient seems to enjoy visiting with her company. She goes to all groups today and is social with peers. She states that her appetite is improved and she is eating meat again. It is observed that she has brushed her hair. RN states it is good to see that you are feeling better tow which patient replied ys, I hope that it lasts. S/I, H/I: passive S/I A/VH: Denies Sleep: 8hrs NOC 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: yes Were meds taken: Yes Any med S/E: none reported Mental Status Exam Appearance: disheveled, brushed her hair later in the day Eye contact: direct Behavior: Cooperative and friendly Speech: Soft tone, normal rate and rhythm Mood: improved from prior shifts, more hopeful Affect: congruent to mood Thought process: WNL Thought Content: no deluisonal thought content present Cognition: A&O X4 Insight: Poor Judgment: Poor Interventions PRN's used: none Therapeutic interventions: 1:1 therapeutic assessment, maintained safe therapeutic milieu, provided active listening with positive feedback, provided medication education as needed, monitored behaviors and need for intervention, Q 15 min safety checks. Restraints/seclusion/emergency medication: N/A Justification of Continued Inpatient Treatment: Pt is still very depressed, suicidal and is at high risk if she was released. Continued therapeutic support and medication management needed to provide stabilization, prevent decompensation, decreasing risk to patient and readmittance.
[2019-01-07 19:00] VITALS: BP 110/68
[2019-01-07] MEDS: famotidine 20mg tablet PO SCH (20:46)
[2019-01-07] MEDS: OLANZapine 5mg rapidly disint. tablet PO SCH (20:46)
--- NOTE | 2019-01-07 23:49 | NUR ---
Nursing Progress Note: Legal hold: Voluntary Client on voluntary status for DTS Report received from nurse with use of SBAR: Bonita RN Why are they here: Pt self presented to the ER after recently being discharged from [facility] 4 days ago. She reported that she had stopped taking her medications due to side effects (making her heart rate too fast). Pt reports suicidal ideation constantly all day and states, "I feel like I have no purpose". She had a recent suicide attempt by laying in middle of road and wanting for a car to hit her. Pt has history Bipolar, depression, anxiety, and reports she became suicidal again when thinking about the recent of her step-dad from an [place]. Assessment What has happened this shift: Pt up in group room interacting with peers. Pt's mood and affect have improved from last night. Pt is more talkative and is observed working on a word search with another client. Pt states "I am feeling better and I hope it lasts." Pt denies S/I, when asked pt states "none!" Pt is medication compliant and does not request any PRN's. No delusional statements made. S/I, H/I: S/I- "None" A/VH: Pt denies Sleep: See sleep assessment notation. 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: rouge miller, no group Were meds taken: Medication compliant Any med S/E: None reported or observed Mental Status Exam Appearance: Disheveled, messy hair, dressed in green scrubs Eye contact: Good Behavior: Cooperative, more social Speech: Soft, articulate, normal rate and rhythm Mood: "Better" Affect: Flat with some brightening Thought process: Linear Thought Content: "Feeling better" Cognition: A&O X4 Insight: Fair Judgment: Fair Interventions PRN's used: None Therapeutic interventions: 1:1 therapeutic assessment, medication administration/education, monitored behavior and need for intervention, maintained a safe, supportive environment, maintained Q15 min safety checks. Restraints/seclusion/emergency medication: N/A Justification of Continued Inpatient Treatment: Pt. requires interruption of current crisis, medication adjustments, and a safe and supportive environment.
[2019-01-08] MEDS: lactobacillus rhamnosus 10,000 MMU CELLS/CAPSULE PO SCH ×2 (07:44→20:57)
[2019-01-08] MEDS: carBAMazepine 100mg chewable tablet PO SCH ×2 (07:44→20:57)
[2019-01-08] MEDS: loratadine 10mg tablet PO SCH (07:44)
[2019-01-08] MEDS: sulfamethoxazole/trimethoprim DS (800/160mg) tablet PO SCH ×2 (07:44→20:59)
[2019-01-08 08:00] VITALS: BP 98/47
--- NOTE | 2019-01-08 12:02 | NUR ---
Initial: Pt admit with depression, currently on regular diet documented with 75-100% PO intake with some fluctuations likely meeting nutrient needs. Noted that pt documented with emesis yesterday. [facility] 01/06 receiving bowel care PRN. No edema or wounds. No nutrition diagnosis at this time. Will continue to follow. Recommendations: 1) Continue regular diet 2) Bowel care PRN 3) Weekly wt Addendum: 01/08/19 at [address] Amended: Links added.
[2019-01-08] MEDS: hydrOXYzine 25 MG tablet PO PRN (13:14)
--- NOTE | 2019-01-08 16:26 | NUR ---
Nursing Progress Note: Legal hold: Voluntary Client on voluntary status for DTS Report received from nurse with use of SBAR: LORETTA Yates Why are they here: Pt self presented to the ER after recently being discharged from [facility] 4 days ago. She reported that she had stopped taking her medications due to side effects (making her heart rate too fast). Pt reports suicidal ideation constantly all day and states, "I feel like I have no purpose". She had a recent suicide attempt by laying in middle of road and wanting for a car to hit her. Pt has history Bipolar, depression, anxiety, and reports she became suicidal again when thinking about the recent of her step-dad from an [place]. Assessment What has happened this shift: The patient was asleep at change of shift. She did get up and ate breakfast with her peers. She attended group today and interacting with other women on the unit and doing word search puzzles and laughing. denies sicidal thoughts at this time. Med compliant and eating meals. No delusions. S/I, H/I: S/I- "None" A/VH: Pt denies Sleep: None 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: yes Were meds taken: Medication compliant Any med S/E: None reported or observed Mental Status Exam Appearance: Disheveled, messy hair, dressed in green scrubs Eye contact: Good Behavior: Cooperative, more social Speech: Soft, articulate, normal rate and rhythm Mood: "Better" Affect: blunted Thought process: Linear Thought Content: "Feeling better" Cognition: A&O X4 Insight: Fair Judgment: Fair Interventions PRN's used: atarax Therapeutic interventions: 1:1 therapeutic assessment, medication administration/education, monitored behavior and need for intervention, maintained a safe, supportive environment, maintained Q15 min safety checks. Restraints/seclusion/emergency medication: N/A Justification of Continued Inpatient Treatment: Pt. requires interruption of current crisis, medication adjustments, and a safe and supportive environment.
[2019-01-08 19:13] VITALS: BP 108/63
[2019-01-08] MEDS: famotidine 20mg tablet PO SCH (20:58)
[2019-01-08] MEDS: OLANZapine 5mg rapidly disint. tablet PO SCH (20:58)
--- NOTE | 2019-01-09 01:50 | NUR ---
Nursing Progress Note: Legal hold: Voluntary Client on voluntary status for DTS Report received from nurse with use of SBAR: Minerva RN Why are they here: Pt self presented to the ER after recently being discharged from [facility] 4 days ago. She reported that she had stopped taking her medications due to side effects (making her heart rate too fast). Pt reports suicidal ideation constantly all day and states, "I feel like I have no purpose". She had a recent suicide attempt by laying in middle of road and wanting for a car to hit her. Pt has history Bipolar, depression, anxiety, and reports she became suicidal again when thinking about the recent of her step-dad from an [place]. Assessment What has happened this shift: Patient up on the unit interacting with her peers. She is pleasant and friendly with others. She plans with other patients this evening to watch a movie during snack time. During assessment patient denies SI/HI, AH/VH. She reports depression as "not currently", but explains she does still have bouts of it at times. She is compliant with her HS medications and then gets herself to bed after watching a movie with her peers. S/I, H/I: Denies A/VH: Denies Sleep: None 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: Yes Were meds taken: Yes Any med S/E: None reported or observed Mental Status Exam Appearance: Disheveled, messy hair, dressed in green scrubs Eye contact: Good Behavior: Cooperative, social Speech: Soft, articulate, normal rate and rhythm Mood: "Better" Affect: Blunted Thought process: Linear Thought Content: "Feeling better" Cognition: A&O X4 Insight: Fair Judgment: Fair Interventions PRN's used: None Therapeutic interventions: 1:1 therapeutic assessment, medication administration/education, monitored behavior and need for intervention, maintained a safe, supportive environment, maintained Q15 min safety checks. Restraints/seclusion/emergency medication: N/A Justification of Continued Inpatient Treatment: Pt. requires interruption of current crisis, medication adjustments, and a safe and supportive environment.
[2019-01-09] MEDS: loratadine 10mg tablet PO SCH (07:52)
[2019-01-09] MEDS: sulfamethoxazole/trimethoprim DS (800/160mg) tablet PO SCH ×2 (07:52→20:48)
[2019-01-09] MEDS: lactobacillus rhamnosus 10,000 MMU CELLS/CAPSULE PO SCH ×2 (07:52→20:48)
[2019-01-09 08:00] VITALS: BP 96/53
[2019-01-09] MEDS: carBAMazepine 100mg chewable tablet PO SCH ×2 (08:44→20:47)
--- NOTE | 2019-01-09 16:10 | NUR ---
Nursing Progress Note: Legal hold: Voluntary Client on voluntary status for DTS Report received from nurse with use of SBAR: LORETTA Yates Why are they here: Pt self presented to the ER after recently being discharged from [facility] 4 days ago. She reported that she had stopped taking her medications due to side effects (making her heart rate too fast). Pt reports suicidal ideation constantly all day and states, "I feel like I have no purpose". She had a recent suicide attempt by laying in middle of road and wanting for a car to hit her. Pt has history Bipolar, depression, anxiety, and reports she became suicidal again when thinking about the recent of her step-dad from an [place]. Assessment What has happened this shift: Received patient asleep w/o distress at change of shift. She awoke for medications and breakfast, and ate with others while socializing. She spent time resting in bed and reading a book. Got up and showered and watched movie in afternoon. Denies SI and not delusional. Euthymic, smiling and in pleasant mood. S/I, H/I: S/I- "None" A/VH: Pt denies Sleep: None ADL's: Good Group attendance: yes Were meds taken: Medication compliant Any med S/E: None reported or observed Mental Status Exam Appearance: Disheveled before shower Eye contact: Good Behavior: Cooperative, more social Speech: Soft, articulate, normal rate and rhythm Mood: Euthymic Affect: Appropriate Thought process: Linear Thought Content: Feeling better Cognition: A&O X4 Insight: Fair Judgment: Fair Interventions PRN's used: None Therapeutic interventions: 1:1 therapeutic assessment, medication administration/education, monitored behavior and need for intervention, maintained a safe, supportive environment, maintained Q15 min safety checks. Restraints/seclusion/emergency medication: N/A Justification of Continued Inpatient Treatment: Pt. requires interruption of current crisis, medication adjustments, and a safe and supportive environment.
[2019-01-09 20:00] VITALS: BP 124/71
[2019-01-09] MEDS: OLANZapine 5mg rapidly disint. tablet PO SCH (20:46)
[2019-01-09] MEDS: famotidine 20mg tablet PO SCH (20:49)
--- NOTE | 2019-01-09 23:57 | NUR ---
Nursing Progress Note: Legal hold: Voluntary Client on voluntary status for DTS Report received from nurse with use of SBAR: LORETTA Yung Why are they here: Pt self presented to the ER after recently being discharged from [facility] 4 days ago. She reported that she had stopped taking her medications due to side effects (making her heart rate too fast). Pt reports suicidal ideation constantly all day and states, "I feel like I have no purpose". She had a recent suicide attempt by laying in middle of road and wanting for a car to hit her. Pt has history Bipolar, depression, anxiety, and reports she became suicidal again when thinking about the recent of her step-dad from an [place]. Assessment What has happened this shift: This patient is in her room following shift change. She presents as awake and well oriented. She is of linear thought and makes direct eye contact. The patient tells this remote mortgage underwriter that she has minor depression at this time. 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 This patient is very pleasant, she is goal oriented. Patient denies S/I or H/I. She is medication compliant. Patient later in shift watched a movie in the community room with others then retired to sleep. S/I, H/I: S/I- Patient denies. A/VH: Pt denies. Sleep: None. ADL's: Good. Group attendance: Yes, on day shift. Were meds taken: Medication compliant Any med S/E: None. Mental Status Exam Appearance: Clean, wearing green scrubs. Eye contact: Good Behavior: Cooperative, social with other patients. Speech: Soft, articulate, normal rate and rhythm. Mood: Euthymic. Affect: Appropriate. Thought process: Linear. Thought Content: Feeling better. Cognition: A&O X4. Insight: Good. Judgment: Fair. Interventions PRN's used: None Therapeutic interventions: 1:1 therapeutic assessment, medication administration/education, monitored behavior and need for intervention, maintained a safe, supportive environment, maintained Q15 min safety checks. Restraints/seclusion/emergency medication: N/A Justification of Continued Inpatient Treatment: Pt. requires interruption of current crisis, medication adjustments, and a safe and supportive environment.
[2019-01-10 07:15] VITALS: BP 97/56
[2019-01-10] MEDS: sulfamethoxazole/trimethoprim DS (800/160mg) tablet PO SCH ×2 (07:59→20:24)
[2019-01-10] MEDS: loratadine 10mg tablet PO SCH (07:59)
[2019-01-10] MEDS: carBAMazepine 100mg chewable tablet PO SCH ×2 (07:59→20:25)
[2019-01-10] MEDS: lactobacillus rhamnosus 10,000 MMU CELLS/CAPSULE PO SCH ×2 (07:59→20:24)
--- NOTE | 2019-01-10 13:22 | NUR ---
Nursing Progress Note: Legal hold: Voluntary Client on voluntary status for DTS Report received from nurse with use of SBAR: LORETTA Lezama Why are they here: Pt self presented to the ER after recently being discharged from [facility] 4 days ago. She reported that she had stopped taking her medications due to side effects (making her heart rate too fast). Pt reports suicidal ideation constantly all day and states, "I feel like I have no purpose". She had a recent suicide attempt by laying in middle of road and wanting for a car to hit her. Pt has history Bipolar, depression, anxiety, and reports she became suicidal again when thinking about the recent of her step-dad from an [place]. Assessment What has happened this shift: Pt sleeping at start of shift. Up for medication administration and breakfast. Pt pleasant and cooperative after being woke up and encouraged to go to morning group. Pt admits to past SA rates thoughts of suicide 07/21, this morning. 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 S/I: 07/21 w/o plan H/I: N/A A/VH: Denies Sleep: rested throughout the day; appears to have slept a few times a day ADL's: Good Group attendance: yes Were Meds taken: Medication compliant Any med S/E: None reported or observed Mental Status Exam Appearance: Disheveled at breakfast Eye contact: Good Behavior: Cooperative Speech: Soft, articulate, normal rate and rhythm Mood: Euthymic Affect: Appropriate Thought process: Linear Thought Content: Feeling better Cognition: A&O X4 Insight: Fair Judgment: Fair Interventions PRN's used: None Therapeutic interventions: 1:1 therapeutic assessment, medication administration/education, monitored behavior and need for intervention, encouraged group attendance, maintained a safe, supportive environment, maintained Q15 min safety checks. Restraints/seclusion/emergency medication: N/A Justification of Continued Inpatient Treatment: Pt. requires interruption of current crisis, medication adjustments, and a safe and supportive environment.
[2019-01-10] MEDS: hydrOXYzine 25 MG tablet PO PRN (18:51)
[2019-01-10 20:00] VITALS: BP 110/71
[2019-01-10] MEDS: OLANZapine 5mg rapidly disint. tablet PO SCH (20:25)
[2019-01-10] MEDS: famotidine 20mg tablet PO SCH (20:25)
--- NOTE | 2019-01-10 22:35 | NUR ---
Nursing Progress Note: Legal hold: Voluntary Client on voluntary status for DTS Report received from nurse with use of SBAR: LORETTA Castillo Why are they here: Pt self presented to the ER after recently being discharged from [facility] 4 days ago. She reported that she had stopped taking her medications due to side effects (making her heart rate too fast). Pt reports suicidal ideation constantly all day and states, "I feel like I have no purpose". She had a recent suicide attempt by laying in middle of road and wanting for a car to hit her. Pt has history Bipolar, depression, anxiety, and reports she became suicidal again when thinking about the recent of her step-dad from an [place]. Assessment What has happened this shift: The patient was seen in the group room at shift change. She agreed to 1:1 at her bedside. The patient reports that she is still somewhat suicidal. She presents as anxious and irritable, making many somatic complaints that she believes are caused by medicine. She states that her life is too stressful, and she needs to back up some, "to a less stressful lifestyle." Patient reports that since the of her step-father, she has been depressed, and can't move past it. "I need to get better so I can get back to my life." She had a visit from her boyfriend that appeared to go well, but after he left, she used the phone and ended up crying after. She would not talk about it. The patient is compliant with medications and went to bed right after HS med pass. S/I, H/I: Passive SI. A/VH: Denies. Sleep: See sleep hours. ADL's: Independent. Group attendance: No groups at night. Were meds taken: Yes Any med S/E: None. Mental Status Exam Appearance: Disheveled, messy hair, wearing green scrubs. Eye contact: Good Behavior: Socializes with others. Speech: Soft, articulate, normal rate and rhythm. Mood: depressed. Affect: Flat. Thought process: Linear. Thought Content: Feeling better. Cognition: A&O X4. Insight: Good. Judgment: Fair. Interventions PRN's used: None Therapeutic interventions: 1:1 therapeutic assessment, medication administration/education, monitored behavior and need for intervention, maintained a safe, supportive environment, maintained Q15 min safety checks. Restraints/seclusion/emergency medication: N/A Justification of Continued Inpatient Treatment: Pt. requires interruption of current crisis, medication adjustments, and a safe and supportive environment.
[2019-01-11 07:53] VITALS: BP 95/45
[2019-01-11] MEDS: lactobacillus rhamnosus 10,000 MMU CELLS/CAPSULE PO SCH ×2 (08:03→21:27)
[2019-01-11] MEDS: carBAMazepine 100mg chewable tablet PO SCH ×2 (08:03→21:28)
[2019-01-11] MEDS: sulfamethoxazole/trimethoprim DS (800/160mg) tablet PO SCH ×2 (08:03→21:28)
[2019-01-11] MEDS: loratadine 10mg tablet PO SCH (08:03)
--- NOTE | 2019-01-11 15:11 | NUR ---
Nursing Progress Note: Legal hold: Voluntary Client on voluntary status for DTS Report received from nurse with use of SBAR: LORETTA Arguelles Why are they here: Pt self presented to the ER after recently being discharged from [facility] 4 days ago. She reported that she had stopped taking her medications due to side effects (making her heart rate too fast). Pt reports suicidal ideation constantly all day and states, "I feel like I have no purpose". She had a recent suicide attempt by laying in middle of road and wanting for a car to hit her. Pt has history Bipolar, depression, anxiety, and reports she became suicidal again when thinking about the recent of her step-dad from an [place]. Assessment What has happened this shift: Pt slept through most of breakfast getting up towards the end of it then eating maybe 50% of her meal. 1:1 assessment provided at her bedside during morning medication administration. Pt later up for group then stayed up visiting with two other patients. Pt continues to talk about her inability to handle "stress in her life." She spent time in both groups. S/I: states, "I think about it at times." H/I: N/A A/VH: Denies Sleep: up for most of this shift out w/peers visiting. ADL's: Good Group attendance: yes Were Meds taken: Medication compliant Any med S/E: None reported or observed Mental Status Exam Appearance: Disheveled, encouraged to shower Eye contact: Good Behavior: Cooperative Speech: Soft, articulate, normal rate and rhythm Mood: Euthymic Affect: Appropriate Thought process: Linear Thought Content: Feeling better Cognition: A&O X4 Insight: Fair Judgment: Fair Interventions PRN's used: None Therapeutic interventions: 1:1 therapeutic assessment, medication administration/education, monitored behavior and need for intervention, encouraged group attendance, maintained a safe, supportive environment, maintained Q15 min safety checks. Restraints/seclusion/emergency medication: N/A Justification of Continued Inpatient Treatment: Pt. requires interruption of current crisis, medication adjustments, and a safe and supportive environment.
[2019-01-11 20:00] VITALS: BP 111/69
[2019-01-11] MEDS: famotidine 20mg tablet PO SCH (21:28)
[2019-01-11] MEDS: OLANZapine 5mg rapidly disint. tablet PO SCH (21:28)
--- NOTE | 2019-01-11 23:12 | NUR ---
Nursing Progress Note: Legal hold: Voluntary Client on voluntary status for DTS Report received from nurse with use of SBAR: LORETTA Mesa Why are they here: Pt self presented to the ER after recently being discharged from [facility] 4 days ago. She reported that she had stopped taking her medications due to side effects (making her heart rate too fast). Pt reports suicidal ideation constantly all day and states, "I feel like I have no purpose". She had a recent suicide attempt by laying in middle of road and wanting for a car to hit her. Pt has history Bipolar, depression, anxiety, and reports she became suicidal again when thinking about the recent of her step-dad from an [place]. Assessment What has happened this shift: The patient was seen in her room at bedside for 1:1. She reports that she still feels depressed and anxious about the future. She is looking forward to her brother's visit [place]. The patient was planning to ask him if she could stay with him, while her other housing issues are resolved. "My father is my trigger, so no way will I stay with him. I just can't spend much time with him." The patient spent the evening on the phone or in her room reading. The patient took her HS meds then went to bed. S/I, H/I: Passive SI. A/VH: Denies. Sleep: See sleep hours. ADL's: Independent. Group attendance: No groups at night. Were meds taken: Yes Any med S/E: None. Mental Status Exam Appearance: Disheveled, messy hair, wearing street clothes. Eye contact: Good Behavior: Socializes with others. reads in her room. Speech: Soft, articulate, normal rate and rhythm. Mood: depressed. Affect: Flat. Thought process: Linear. Thought Content: Working on getting her brother to let her stay with him. Cognition: A&O X4. Insight: Good. Judgment: Fair. Interventions PRN's used: None Therapeutic interventions: 1:1 therapeutic assessment, medication administration/education, monitored behavior and need for intervention, maintained a safe, supportive environment, maintained Q15 min safety checks. Restraints/seclusion/emergency medication: N/A Justification of Continued Inpatient Treatment: Pt. requires interruption of current crisis, medication adjustments, and a safe and supportive environment.
[2019-01-12 07:40] VITALS: BP 97/46
[2019-01-12] MEDS: loratadine 10mg tablet PO SCH (08:12)
[2019-01-12] MEDS: sulfamethoxazole/trimethoprim DS (800/160mg) tablet PO SCH ×2 (08:12→20:26)
[2019-01-12] MEDS: carBAMazepine 100mg chewable tablet PO SCH ×2 (08:12→20:27)
[2019-01-12] MEDS: lactobacillus rhamnosus 10,000 MMU CELLS/CAPSULE PO SCH ×2 (08:12→20:26)
--- NOTE | 2019-01-12 16:42 | NUR ---
Nursing Progress Note: Natan Legal hold: Voluntary Client on voluntary status for DTS Report received from nurse with use of SBAR: LORETTA Castillo Why are they here: Pt self presented to the ER after recently being discharged from [facility] 4 days ago. She reported that she had stopped taking her medications due to side effects (making her heart rate too fast). Pt reports suicidal ideation constantly all day and states, "I feel like I have no purpose". She had a recent suicide attempt by laying in middle of road and wanting for a car to hit her. Pt has history Bipolar, depression, anxiety, and reports she became suicidal again when thinking about the recent of her step-dad from an [place]. Assessment What has happened this shift: Pt is resting in bed peacefully when care assumed. She is pleasant and cooperative with care. She denies A/VH but is passively suicidal and reports that she is still felling dperessed. She reports that she is hoping to go live with her step brother upon discharge. She reports that she is hopeful everything will work out. She eats her meals and snacks in the community room. She did not go out on the patio in the morning however, she did participate in groups. S/I, H/I: Passive SI. A/VH: Denies. Sleep: rests intermittently throughout the day. ADL's: Independent. Group attendance: yes Were meds taken: Yes Any med S/E: None. Mental Status Exam Appearance: Disheveled, messy hair, wearing green scrubs with a sweater Eye contact: Good Behavior: Socializes with others. reads in her room. Speech: Soft, articulate, normal rate and rhythm. Mood: depressed. Affect: Flat. Thought process: Linear. Thought Content: Working on getting her step brother to let her stay with him. Cognition: A&O X4. Insight: Good. Judgment: Fair. Interventions PRN's used: None Therapeutic interventions: 1:1 therapeutic assessment, medication administration/education, monitored behavior and need for intervention, maintained a safe, supportive environment, maintained Q15 min safety checks. Restraints/seclusion/emergency medication: N/A Justification of Continued Inpatient Treatment: Pt. requires interruption of current crisis, medication adjustments, and a safe and supportive environment.
[2019-01-12 20:00] VITALS: BP 106/62
[2019-01-12] MEDS: famotidine 20mg tablet PO SCH (20:26)
[2019-01-12] MEDS: OLANZapine 5mg rapidly disint. tablet PO SCH (21:27)
[2019-01-12] MEDS: mag hydrox/Alum hydrox/simeth 30ml oral suspension PO PRN (21:30)
--- NOTE | 2019-01-13 01:05 | NUR ---
Nursing Progress Note: Legal hold: Voluntary Client on voluntary status for DTS Report received from nurse with use of SBAR: LORETTA Mesa Why are they here: Pt self presented to the ER after recently being discharged from [facility] 4 days ago. She reported that she had stopped taking her medications due to side effects (making her heart rate too fast). Pt reports suicidal ideation constantly all day and states, "I feel like I have no purpose". She had a recent suicide attempt by laying in middle of road and wanting for a car to hit her. Pt has history Bipolar, depression, anxiety, and reports she became suicidal again when thinking about the recent of her step-[place] from [place]. Assessment What has happened this shift: Patient is visible on the unit at change of shift. She is seen walking the halls with her peers and interacting with them appropriately. She is agreeable to an assessment at her bedside. She reports still feeling depressed, and when asked about SI she states sometimes. When asked if she has any active plan she states "No, I'm just mostly sad." She spends the majority of her evening in the group room watching a movie with her peers and socializing. She is cooperative for medication pass and takes all her HS medications. S/I, H/I: Passive SI. A/VH: Denies. Sleep: Currently sleeping, see sleep assessment ADL's: Independent. Group attendance: No groups this shift Were meds taken: Yes Any med S/E: None noted or reported. Mental Status Exam Appearance: Disheveled Eye contact: Good Behavior: Socializes with others, calm, cooperative Speech: Soft, articulate, normal rate and rhythm. Mood: Depressed Affect: Flat, congruent to mood. Thought process: Linear. Thought Content: Mainly on spending time with peers this evening. Cognition: A&O X4. Insight: Good. Judgment: Fair. Interventions PRN's used: None Therapeutic interventions: 1:1 therapeutic assessment, medication administration/education, monitored behavior and need for intervention, maintained a safe, supportive environment, maintained Q15 min safety checks. Restraints/seclusion/emergency medication: N/A Justification of Continued Inpatient Treatment: Pt. requires interruption of current crisis, medication adjustments, and a safe and supportive environment.
[2019-01-13 08:00] VITALS: BP 90/41
[2019-01-13] MEDS: carBAMazepine 100mg chewable tablet PO SCH ×2 (08:10→20:57)
[2019-01-13] MEDS: sulfamethoxazole/trimethoprim DS (800/160mg) tablet PO SCH ×2 (08:10→20:57)
[2019-01-13] MEDS: lactobacillus rhamnosus 10,000 MMU CELLS/CAPSULE PO SCH ×2 (08:10→20:57)
[2019-01-13] MEDS: loratadine 10mg tablet PO SCH (08:10)
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
[2019-01-13 19:00] VITALS: BP 111/78
[2019-01-13] MEDS: hydrOXYzine 25 MG tablet PO PRN (19:00)
[2019-01-13] MEDS: acetaminophen 325mg tablet PO PRN (19:50)
[2019-01-13] MEDS: OLANZapine 5mg rapidly disint. tablet PO SCH (20:58)
[2019-01-13] MEDS: famotidine 20mg tablet PO SCH (20:58)
[2019-01-13] MEDS: LORazepam 1 MG tablet PO PRN (20:59)
--- NOTE | 2019-01-14 01:48 | NUR ---
Nursing Progress Note: Legal hold: Voluntary Client on voluntary status for DTS Report received from nurse with use of SBAR: LORETTA Urrutia Why are they here: Pt self presented to the ER after recently being discharged from [facility]. She reported that she had stopped taking her medications due to side effects (making her heart rate too fast). Pt reports suicidal ideation constantly all day and states, "I feel like I have no purpose". She had a recent suicide attempt by laying in middle of road and wanting for a car to hit her. Pt has history Bipolar, depression, anxiety, and reports she became suicidal again when thinking about the recent of her step-dad from an [place]. Assessment What has happened this shift: Patient is tearful and at times sobbing on the phone at change of shift. She requests an anxiety medication and explains that she is upset and feels like she can't control herself right now. Atarax is administered at this time, but patient will not get of the phone to talk to this RN about what is going on. She later gets off the phone is still very distraught and requests and additional anxiety medication to help her because she say's she still feels like losing control. Ativan is administered and patient begins to express that she is upset because her plans to stay with her brother fell through. She states "I'm usually sad, I'm just angry right now, I want to scream but I don't want to scare anyone." We go over ways she can take care of herself once discharged. She reports going to her boyfriends and refers to him being on keto which wont encourage her to eat, a plan is made that they can shop together and she can pick out her own food items. She also talks about how she can [facility] to keep herself busy an in structured environment when she feels like she is losing control as they do daily activities and have people on site for her to talk to if needed. Patient was able to be calmed with anxiety medication and talking herself through a plan so that she can be successful once discharged. Patient was compliant with HS medications and fell asleep shortly after medication pass. S/I, H/I: None reported A/VH: none reported Sleep: Currently sleeping, see sleep assessment ADL's: Independent. Group attendance: Yes Were meds taken: Yes Any med S/E: None noted or reported. Mental Status Exam Appearance: Disheveled Eye contact: Direct Behavior: Pleasant, friendly, cooperative Speech: Soft tone, normal rate and rhythm Mood: Tearful, anxious Affect: Congruent to mood. Thought process: Linear. Thought Content: Making sure she takes care of herself once she is discharged. Cognition: A&O X4. Insight: Good. Judgment: Fair. Interventions PRN's used: None Therapeutic interventions: 1:1 therapeutic assessment, medication administration/education, monitored behavior and need for intervention, maintained a safe, supportive environment, maintained Q15 min safety checks. Restraints/seclusion/emergency medication: N/A Justification of Continued Inpatient Treatment: Continued therapeutic support and medication management needed to provide stabilization, prevent decompensation, improve coping mechanisms decreasing risk to patient of re-admittance.
[2019-01-14 08:00] VITALS: BP 97/46
[2019-01-14] MEDS: carBAMazepine 100mg chewable tablet PO SCH (08:32)
[2019-01-14] MEDS: lactobacillus rhamnosus 10,000 MMU CELLS/CAPSULE PO SCH (08:33)
[2019-01-14] MEDS: sulfamethoxazole/trimethoprim DS (800/160mg) tablet PO SCH (08:33)
[2019-01-14] MEDS: loratadine 10mg tablet PO SCH (08:33)
[2019-01-14] MEDS: hydrOXYzine 25 MG tablet PO PRN ×2 (08:46→14:40)
--- NOTE | 2019-01-14 09:19 | NUR ---
Reassessment: PO intake declined to 25-49% on 01/13, previously eating 75-100% of meals. On average has great appetite and able to meet nutrition needs with regular diet. LBM 01/09, documented as moderate liquid stool. No nutrition diagnosis at this time. Will continue to follow. Recommendations: 1) Continue regular diet 2) Bowel care PRN 3) Weekly wt Addendum: 01/14/19 at [address] Amended: Links added.
[2019-01-14] MEDS ORDERED: ONDA4TAB12 PO (14:18)
[2019-01-14] MEDS ORDERED: FAMO20TA8 PO (14:18)
[2019-01-14] MEDS ORDERED: ATI1T PO (14:18)
[2019-01-14] MEDS ORDERED: LACT1CAP26 PO (14:18)
[2019-01-14] MEDS ORDERED: OLAN5TAB29 PO (14:18)
[2019-01-14] MEDS ORDERED: BACDS PO (14:18)
[2019-01-14] MEDS ORDERED: HYDR-3686 PO (14:18)
[2019-01-14] MEDS ORDERED: CARB100T15 PO (14:18)
--- NOTE | 2019-01-14 15:42 | NUR ---
NURSING DISCHARGE NOTE Patient is accompanied off unit by this RN at 1515. She will be transported via her boyfriend to his home in [facility]. All valuables inventoried by Dominique Cai and provided back to patient. RN went over prescribed medications with patient, patient denies any questions. Patient states that she will follow-up with Juany Jones and [facility] as discussed. Patient reports some anxiety and talked about ways she will cope with it. Patient denies S/I and has improved since admit. Patient is not under any acute physical or emotional distress. Nicotine replacement is not necessary as patient is a non-smoker.
== END 2019-01-14 15:15 | disposition home or self-care (01) | DRG 753 ==
LOC: ADULT MH 13:46
PROVIDERS: ADMIT Psychiatry & Neurology Psychiatry; ATTEND Psychiatry & Neurology Psychiatry
DX: F31.9 Bipolar disorder, unspecified (principal); R45.851 Suicidal ideations; R22.2 Localized swelling, mass and lump, trunk; J45.909 Unspecified asthma, uncomplicated; F43.12 Post-traumatic stress disorder, chronic; K21.9 Gastro-esophageal reflux disease without esophagitis; Z59.0 Homelessness; Z79.899 Other long term (current) drug therapy; Z82.5 Family history of asthma and other chronic lower respiratory diseases; Z88.1 Allergy status to other antibiotic agents
CPT/HCPCS: 36415; 80061; 80156; 87081; 99285; Z7610